=== PATIENT | male | born 1985 | race Caucasian/White ===

== ENCOUNTER → 2021-03-18 | Outpatient (CLI) | payer OTHER ==
--- NOTE | 2021-03-18 16:27 | XR ---
EXAMINATION TYPE: XR foot complete RT DATE OF EXAM: 03/18/2021 CLINICAL HISTORY: Pain for 3 months worse laterally TECHNIQUE: Frontal, lateral, and oblique images of the right foot are obtained. COMPARISON: None FINDINGS: There is no acute fracture/dislocation evident in the right foot. The joint spaces in the right foot appear within normal limits. Some flexion in varus positioning distal fourth and fifth to es. The overlying soft tissue appears unremarkable. IMPRESSION: As above.
== END | disposition home or self-care (01) ==
LOC: RADXRYALE 16:14
PROVIDERS: ATTEND Internal Medicine
DX: M79.671 Pain in right foot (principal)

== ENCOUNTER 2022-01-15 12:27 | Day surgery (SDC) | payer OTHER ==
[2022-01-13 12:25] VITALS: BMI 28.7
--- NOTE | 2022-01-13 13:16 | P.HPOR ---
History of Present Illness H&P Date: 01/13/22 Chief Complaint: Left small finger foreign body Subjective: This is a 36 year old male that presents today for initial evaluation regarding a 4 month history of worsening left small finger pain after a piece of wood got stuck into his finger. He originally was seen by his PCP who attempted removal but was unsuccessful. He has continued pain and sensitivity in the tip of the finger with pressure and would like to have it removed. Physical Examination: LUE: AIN/PIN/Radial/Ulnar/Median motor intact. Radial/Ulnar/Median SILT. 2+/4 Radial/Ulnar pulses palpated. 5/5 APB, 5/5 FDI. Negative Finkelsteins, negative CMC grind, negative Durkan's compression. Palpable sharp mass located in volar pulp of left small finger. Imaging: X-Rays of the left small finger demonstrate no acute osseus abnormality. Impression: 1.) Left small finger foreign body Plan: Diagnosis and treatment options were discussed with the patient. He wishes to have foreign body removed due to continued pain and sensitivity. Risks and benefits of surgery including bleeding, infection, damage to surrounding tissue, need for further surgery, residual numbness were discussed and the patient wished to go forward with surgery in the form of a left small finger foreign body excision in the near future. -Addison Hernandez DO Orthopedic Hand/Upper Extremity Surgeon Past Medical History Past Medical History: No Reported History Additional Past Medical History / Comment(s): FOREIGN BODY IN LT LITTLE FINGER SINCE JUNE History of Any Multi-Drug Resistant Organisms: None Reported Past Surgical History: No Surgical Hx Reported Past Anesthesia/Blood Transfusion Reactions: No Reported Reaction Smoking Status: Never smoker - Past Family History Mother Family Medical History: No Reported History Medications and Allergies Home Medications Medication Instructions Recorded Confirmed Type No Known Home Medications 01/13/22 01/13/22 History Allergies Allergy/AdvReac Type Severity Reaction Status Date / Time No Known Allergies Allergy Verified 01/13/22 12:21 Physical Examination Osteopathic Statement: *. No significant issues noted on an osteopathic structural exam other than those noted in the History and Physical/Consult.
[~2022-01-15 12:27] MED LIST: HYDROmorphone 0.5 MG/0.5 ML SYRINGE IVP PRN; LACTATED RINGERS 1,000 ML IV SCH
[2022-01-15] MEDS ORDERED: ONDANSETRON 4 MG/2 ML VIAL ONE (12:42)
[2022-01-15] MEDS ORDERED: LIDOCAINE 1% INJ 10MG/ML (20 ML MDV) SQ ONE ×2 (12:54→13:12)
[2022-01-15] MEDS ORDERED: BUPIVACAINE (PF) 0.5% 30 ML VIAL SQ ONE ×2 (12:54→13:12)
[2022-01-15 13:00] VITALS: TEMP 98
[2022-01-15] MEDS ORDERED: DEXAMETHASONE SOD PHOSPHATE 4 MG/ML 1 ML VIAL IVP ONE (13:00)
[2022-01-15] MEDS ORDERED: LACTATED RINGERS 1,000 ML IV ONE (13:00)
[2022-01-15] MEDS ORDERED: ONDANSETRON 4 MG/2 ML VIAL IVP ONE (13:02)
[2022-01-15] MEDS ORDERED: LIDOCAINE 2% INJ 20 MG/ML (2 ML VIAL) ONE (13:03)
[2022-01-15] MEDS ORDERED: MIDAZOLAM 2 MG/2 ML VIAL ONE (13:03)
[2022-01-15] MEDS ORDERED: fentaNYL (PF) 50 MCG/ML 2 ML AMP ONE (13:03)
[2022-01-15] MEDS ORDERED: PROPOFOL 10 MG/ML 20 ML VIAL IV ONE (13:03)
[2022-01-15 14:08] VITALS: BP 114/75; PULSE 62; RESP 18
--- NOTE | 2022-01-16 07:03 | P.OP ---
Date of Procedure: 01/15/22 Preoperative Diagnosis: Left small finger foreign body Postoperative Diagnosis: Left small finger foreign body Procedure(s) Performed: Left small finger foreign body excision, subcutaneous Anesthesia: MAC Surgeon: Addison Hernandez Solid State Tester #1: Александр Darling Estimated Blood Loss (ml): 0 Pathology: none sent Condition: stable Disposition: PACU Description of Procedure: This is a 36 year old male who presents today for a left small finger foreign body excision. Risks and benefits of surgery were discussed with the patient including bleeding, damage to surrounding tissue, infection, need for further surgery as well as risks of anesthesia including pulmonary embolism and even and the patient wished to proceed with surgical intervention. The patient was seen in the pre-operative area by myself. Consent and H&P were completed and updated. The correct extremity was marked in the pre-operative area by myself and all other questions were answered. Operative Narrative: The patient was brought to the operating room by the department of anesthesia. They remained on the portable stretcher and a rolling hand table was brought to the side of the operative extremity. Pre-operative time out was performed indicating the correct patient, procedure and laterality. All in the room agreed. Pre-operative antibiotics were given prior to skin incision. The patient was then drifted off to sleep by the department of anesthesia. 7cc's of 0.5% bupivicaine and 1% lidocaine was injected to perform a digital block. A nonsterile tourniquet was then applied to the operative extremity and the left upper extremity was then prepped and draped in normal sterile fashion. The operative extremity was the exsanguinated with an esmarch bandage and the tourniquet was inflated to 250mmHg. 15 blade scalpel was utilized to make a longitudinal incision over the area of the palpated foreign body. Blunt dissection was taken down through subcutaneous tissues. A 1.3 cm wooden splinter was identified in the volar pulp. The wound was then closed with 4-0 nylon suture, adaptic, 4x4s, and coban wrap. Tourniquet was let down and the digits had immediate profusion. The patient was then woken by the department of anesthesia and taken to PACU in stable condition. -Addison Hernandez DO Orthopedic Hand/Upper Extremity Surgeon
== END 2022-01-15 14:19 | disposition home or self-care (01) ==
LOC: OR 12:27
PROVIDERS: ATTEND Orthopaedic Surgery Hand Surgery
DX: M79.5 Residual foreign body in soft tissue (principal); Z18.33 Retained wood fragments; I10 Essential (primary) hypertension
CPT/HCPCS: 10120; J2250; J1100; J0690; J2405; J2001 ×2; J3010; J2704

== ENCOUNTER 2024-12-01 16:36 | Emergency (ER) | payer OTHER ==
--- NOTE | 2024-12-01 18:03 | ED ---
General Adult HPI - General Chief complaint: Psychiatric Symptoms Stated complaint: mental health Time Seen by Provider: 12/01/24 17:20 Source: patient, EMS, RN notes reviewed, old records reviewed Mode of arrival: EMS Limitations: no limitations - History of Present Illness Initial comments: Patient is a 39-year-old male who presents emergency department after being brought in by police. Apparently patient has been feeling more depressed lately. Does follow-up with a psychiatrist. Was not petitioned. May have broken window with a chair or broken something else at his home. He denies any suicidal ideations or intents or plans. Denies any visual or auditory hallucinations. Denies any homicidal ideations, attempts, complaints. - Related Data Home Medications Medication Instructions Recorded Confirmed No Known Home Medications 01/13/22 01/15/22 Allergies Allergy/AdvReac Type Severity Reaction Status Date / Time No Known Allergies Allergy Verified 01/15/22 12:47 Review of Systems ROS Statement: Those systems with pertinent positive or pertinent negative responses have been documented in the HPI. Review of Systems: CONST: Denies fever EYES: Denies blurry vision ENT: Denies nasal congestion C/V: Denies Chest pain RESP: Denies shortness of breath GI: Denies abdominal pain : Denies dysuria SKIN: Denies rash. MSK: Denies joint pain. NEURO: Denies headache ROS Other: All systems not noted in ROS Statement are negative. Past Medical History Past Medical History: No Reported History Additional Past Medical History / Comment(s): FOREIGN BODY IN LT LITTLE FINGER SINCE JUNE History of Any Multi-Drug Resistant Organisms: None Reported Past Surgical History: No Surgical Hx Reported Past Anesthesia/Blood Transfusion Reactions: No Reported Reaction Past Psychological History: No Psychological Hx Reported Smoking Status: Never smoker, Vaper Past Alcohol Use History: None Reported Past Drug Use History: Marijuana - Past Family History Mother Family Medical History: No Reported History General Exam - General Exam Comments Initial Comments: General: Appears in no acute distress. HEAD: Normal with no signs of head trauma. EYES: EOMI. ENT: Hearing grossly intact. RESPIRATORY: No respiratory distress. C/V: Regular rate and rhythm. ABD: Abdomen is nondistended. EXT: No obvious deformity. SKIN: Dry skin over the hands. Up-to-date on tetanus. NEURO: Alert and oriented. Limitations: no limitations Course Vital Signs 12/01/24 12/01/24 16:40 18:21 Temperature 98.2 F 98.1 F Pulse Rate 75 74 Respiratory 16 17 Rate Blood Pressure 128/85 147/81 O2 Sat by Pulse 97 99 Oximetry Medical Decision Making - Medical Decision Making Was pt. sent in by a medical professional or institution (, NATE, SENIOR CENTER MANAGER, urgent care, hospital, or residential...) When possible be specific @ -No Did you speak to anyone other than the patient for history (EMS, parent, family, police, friend...)? What history was obtained from this source @ -No Did you review nursing and triage notes (agree or disagree)? Why? @ -I reviewed and agree with nursing and triage notes Were old charts reviewed (outside hosp., previous admission, EMS record, old EKG, old radiological studies, urgent care reports/EKG's, residential records)? Report findings @ -No old charts were reviewed Differential Diagnosis (chest pain, altered mental status, abdominal pain women, abdominal pain men, vaginal bleeding, weakness, fever, dyspnea, syncope, headache, dizziness, GI bleed, back pain, seizure, CVA, palpatations, mental health, musculoskeletal)? @ -Differential Mental Health Depression, anxiety, bipolar, psychosis, schizophrenia, borderline personality, situational depression, adjustment disorder, behavioral disorder, brain tumor, malingering, substance abuse, encephalopathy, medication reaction, dementia, hypothyroidism, degenerative neurologic disorder, lupus.... This is not meant to be all-inclusive list EKG interpreted by me (3pts min.). @ -None done X-rays interpreted by me (1pt min.). @ -None done CT interpreted by me (1pt min.). @ -None done U/S interpreted by me (1pt. min.). @ -None done What testing was considered but not performed or refused? (CT, X-rays, U/S, labs)? Why? @ -None What meds were considered but not given or refused? Why? @ -None Did you discuss the management of the patient with other professionals (professionals i.e. , NATE, SENIOR CENTER MANAGER, lab, RT, psych nurse, social media content specialist, teacher ballet, teacher, life science technical officer, watch caser)? Give summary @ -No Was smoking cessation discussed for >3mins.? @ -No Was critical care preformed (if so, how long)? @ -No Were there social determinants of health that impacted care today? How? (Homelessness, low income, unemployed, alcoholism, drug addiction, transportation, low edu. Level, literacy, decrease access to med. care, residential, rehab)? @ -No Was there de-escalation of care discussed even if they declined (Discuss DNR or withdrawal of care, Hospice)? DNR status @ -No What co-morbidities impacted this encounter? (DM, HTN, Smoking, COPD, CAD, Cancer, CVA, ARF, Chemo, Hep., AIDS, mental health diagnosis, sleep apnea, morbid obesity)? @ -None Was patient admitted / discharged? Hospital course, mention meds given and route, prescriptions, significant lab abnormalities, going to OR and other pertinent info. @ -Based on patient's presentation physical exam, presents emergency department for mental health evaluation. Seems depressed. Not a danger to himself or others at this time. No suicidal homicidal complaints. Vitals are within acceptable limits. BAT is 0. UDS pending. At this time, patient is medically cleared for evaluation by psychiatry. Disposition pending psychiatric evaluation. EPS notified of the consult. EPS Juhi notified me that after discussion with psychiatry, patient does not meet inpatient criteria for psychiatric admission. Will be discharged home with a safety plan. Undiagnosed new problem with uncertain prognosis? @ -No Drug Therapy requiring intensive monitoring for toxicity (Heparin, Nitro, Insulin, Cardizem)? @ -No Were any procedures done? @ -No Diagnosis/symptom? @ -Encounter for psychiatric evaluation Acute, or Chronic, or Acute on Chronic? @ -Acute Uncomplicated (without systemic symptoms) or Complicated (systemic symptoms)? @ -Uncomplicated Side effects of treatment? @ -No Exacerbation, Progression, or Severe Exacerbation? @ -No Poses a threat to life or bodily function? How? (Chest pain, USA, DC, pneumonia, PE, COPD, DKA, ARF, appy, cholecystitis, CVA, Diverticulitis, Homicidal, Suicidal, threat to staff... and all critical care pts) @ -Unlikely at this time Disposition Clinical Impression: Encounter for psychiatric assessment Disposition: HOME SELF-CARE Condition: Good Additional Instructions: follow safety plan Is patient prescribed a controlled substance at d/c from ED?: No Referrals: Estefanía Glez MD [Primary Care Provider] - 1-2 days Time of Disposition: 18:03
[2024-12-01 18:27] VITALS: BP 147/81; PULSE 74; RESP 17; TEMP 98.1
== END 2024-12-01 18:27 | disposition home or self-care (01) ==
LOC: EC 16:36
DX: Z00.8 Encounter for other general examination (principal); F17.290 Nicotine dependence, other tobacco product, uncomplicated
CPT/HCPCS: 82075; 99283